=== PATIENT | male | born 1990 | race Caucasian/White ===

== ENCOUNTER 2019-01-02 17:36 | Emergency (ER) | payer MEDICAID ==
[~2019-01-02] VITALS: Ht 175.3 cm; Wt 72.6 kg
--- NOTE | 2019-01-02 19:05 | NUR ---
seen by . report given to Sebastian JIANG
[2019-01-02] MEDS ORDERED: METOCLOPRAMIDE HCL 10 MG/2 ML VIAL IM ONE (19:15)
[2019-01-02] MEDS ORDERED: diphenhydrAMINE 50 MG/1 ML VIAL IM ONE (19:15)
[2019-01-02] MEDS ORDERED: NEOMY/BACITRA/POLYMYXIN B OINT UD PACKET TP ONE ×2 (19:15→19:26)
[2019-01-02] MEDS ORDERED: diphenhydrAMINE 50 MG/1 ML VIAL ONE (19:24)
[2019-01-02] MEDS ORDERED: METOCLOPRAMIDE HCL 10 MG/2 ML VIAL ONE (19:25)
--- NOTE | 2019-01-02 20:40 | NUR ---
Patient discharged to home in stable conditon. Written and verbal after care instructions given. Patient verbalizes understanding of instructions. patient discharged with all personal belongsins and exit care package. patient self ambulatory with steady gait with fiance. alert and oriented x4. Fiance will be driving the patient home
[2019-01-02 20:41] VITALS: BP 129/82
== END 2019-01-02 20:25 | disposition home or self-care (01) ==
LOC: ER 17:39
DX: S06.0X0A Concussion without loss of consciousness, initial encounter (principal); L02.415 Cutaneous abscess of right lower limb; Z88.1 Allergy status to other antibiotic agents; X58.XXXA Exposure to other specified factors, initial encounter; Y93.89 Activity, other specified; Y92.89 Other specified places as the place of occurrence of the external cause; Y99.8 Other external cause status
CPT/HCPCS: 96372 ×2; 99283; J1200; J2765; A4663

== ENCOUNTER 2019-01-27 07:51 | Emergency (ER) | payer MEDICAID ==
[~2019-01-27] VITALS: Ht 175.3 cm; Wt 74.8 kg
--- NOTE | 2019-01-27 07:51 | NUR ---
Patient is seen walking briskly from ER waiting room to ER bed 4B. Patient is AOx4, NAD, c/o headaches today, but denies nausea or vomiting. Patient added chronic skin infection to his right leg. [facility]en[facility] alert shows that this patient frequents other hospitals' ER department for same issues.
[2019-01-27] MEDS ORDERED: METO-295 PO (08:03)
[2019-01-27] MEDS ORDERED: MELO-107 PO (08:03)
[2019-01-27] MEDS ORDERED: FLEXERIL PO (08:03)
[2019-01-27] MEDS ORDERED: ONDA8TAB6 PO (08:03)
[2019-01-27] MEDS ORDERED: KETOROLAC TROMETHAMINE 30 MG INJ IM ONE (08:45)
[2019-01-27] MEDS ORDERED: KETOROLAC TROMETHAMINE 30 MG INJ ONE (08:51)
--- NOTE | 2019-01-27 09:01 | NUR ---
Patient discharged to home in stable conditon. Written and verbal after care instructions given to patient. Patient verbalizes understanding of instructions.
== END 2019-01-27 09:03 | disposition home or self-care (01) ==
LOC: ER 07:51
DX: F07.81 Postconcussional syndrome (principal); R51 Headache; G89.29 Other chronic pain; M54.9 Dorsalgia, unspecified; L73.9 Follicular disorder, unspecified; M54.2 Cervicalgia; Z88.1 Allergy status to other antibiotic agents; Z79.899 Other long term (current) drug therapy
CPT/HCPCS: 96372; 99283; J1885; A4663